=== PATIENT | male | born 1980 | race Caucasian/White ===

== ENCOUNTER 2019-02-11 09:56 | Inpatient (IN) | payer OTHER, SELFPAY ==
[2019-02-11] VITALS (14 sets, daily range): BP systolic 122–152; BP diastolic 71–91; PULSE 80–101; RESP 16–18; TEMP 36.4–37.4; O2SAT 99–100; BMI 29.0
--- NOTE | 2019-02-11 10:09 | ED_ITS ---
HPI - GI Bleed General Chief complaint: GI Bleed Stated complaint: sent over by his doctor Time Seen by Provider: 02/11/19 10:09 Source: patient Mode of arrival: ambulatory Limitations: no limitations History of Present Illness HPI Narrative: Otherwise healthy 38-year-old male sent over by his primary doctor for concerns of anemia. Patient states that 4 days ago he started to not feel very well. Had generalized weakness. Dyspnea on exertion. States that last week he did have 1 episode of bright red blood per rectum and has had several episodes of black tarry stools. He does drink on a daily basis. Is anamaria es nonsteroidal anti-inflammatories on a daily basis for generalized body aches. He states that he went to his primary doctor yesterday because of all of his symptoms. He thought that the bright red blood was secondary to his hemorrhoids. No abdominal pain he had a CBC drawn yesterday and the results were obtained today and his primary doctor informed him he needed to come to the emergency department. Related Data Home Medications Medication Instructions Recorded Confirmed alprazolam 0.5 mg PO TID PRN 02/11/19 02/11/19 lisinopril 10 mg PO DAILY 02/11/19 02/11/19 naproxen 1 - 2 tab PO 1-2XD PRN 02/11/19 02/11/19 omeprazole 20 mg PO DAILY 02/11/19 02/11/19 ondansetron 4 mg TRANSLINGUAL TID PRN 02/11/19 02/11/19 Allergies Allergy/AdvReac Type Severity Reaction Status Date / Time No Known Drug Allergies Allergy Verified 02/11/19 10:03 Review of Systems Constitutional Reports fatigue, Denies headache(s), Reports lethargy and Reports malaise ENT Ears, Nose, Mouth, and Throat: Denies dysphagia, Denies vertigo, Denies dizziness and Denies headache(s) Cardiovascular Denies chest pain and Reports dyspnea on exertion Respiratory Reports dyspnea on exertion Gastrointestinal Gastrointestinal: Denies abdominal pain, Denies coffee ground emesis, Denies dysphagia, Denies diarrhea and Denies vomiting Comments: Bright red blood per rectum and black tarry stools Genitourinary Denies hematuria, Denies dysuria and Denies urinary incontinence Musculoskeletal Denies myalgias and Denies arthralgias Integumentary/Breasts Denies rash Neurologic Denies vertigo, Denies dizziness and Denies headache(s) Endocrine Reports fatigue Hematologic/Lymphatic Denies easy bleeding and Denies easy bruising PFSH Medical History Healthy adult (Acute) Social History Smoking Status: Former smoker Social History Smoking Status: Former smoker Exam Initial Vital Signs Initial Vital Signs: Vital Signs Temperature 98.2 F 02/11/19 09:59 Pulse Rate 101 H 02/11/19 09:59 Respiratory Rate 16 02/11/19 09:59 Blood Pressure 152/91 H 02/11/19 09:59 Pulse Oximetry 100 02/11/19 09:59 Const General: cooperative, comfortable, well developed, well groomed and No acute distress Orientation: alert, awake and oriented x3 HENMT Head: normocephalic and atraumatic Ears: external ears normal and TM's normal bilaterally Nose: external nose normal and No nasal discharge Face and sinus: sinuses nontender, face symmetric, no sinus tenderness and No dry mucous membranes Mouth: oral mucosae normal and moist mucous membranes Teeth and gingiva: dentition normal Throat: tonsils normal and uvula midline Resp Effort & Inspection: normal respiratory effort Auscultation: clear to auscultation bilaterally Cardio Rate: tachycardic Rhythm: regular rhythm Pulses: radial pulses present GI Inspection: non-distended Palpation: soft and No firm Other: Non thrombosed external hemorrhoids on rectal exam Hemoccult positive Skin Lesions: no lesions Rashes: no rashes Other: Pale skin Neuro General: alert, awake and oriented x3 Extrem General: normal to inspection and capillary refill normal Psych Appearance: grossly normal and well kempt Scores GCS [place] coma scale eye opening: Spontaneous [place] coma scale verbal response: Orientated Lul coma scale motor response: Obey commands Lul coma scale total score: 15 Course Orders Ordered: ED Orders 02/11/19 10:08 EKG-12 Lead Stat 02/11/19 10:45 Complete Blood Count AUTO DIFF Stat Comprehensive Metabolic Panel Stat Lipase Stat Packed Cells Stat Partial Thromboplastin Time Stat Prothrombin Time INR Stat Type and Screen Stat Pantoprazole Sodium 80 mg/ (Sodium Chloride) 100 mls @ 10 mls/hr IV CONT LANCE Last Admin: 02/11/19 11:42 Dose: 8 mg/hr, 10 mls/hr Discontinued Medications Pantoprazole Sodium (Protonix) 80 mg IV NOW ONE Stop: 02/11/19 10:31 Last Admin: 02/11/19 11:42 Dose: 80 mg Vital Signs - 8 hr 02/11/19 09:59 02/11/19 11:30 02/11/19 12:00 Temperature 98.2 F Pulse Rate 101 H 93 H 96 H Respiratory Rate 16 16 17 Blood Pressure 152/91 H Blood Pressure [Left Arm] 145/71 H 134/84 Pulse Oximetry 100 100 100 02/11/19 12:29 Temperature 99.4 F Pulse Rate 90 Respiratory Rate 16 Blood Pressure 129/83 Blood Pressure [Left Arm] Pulse Oximetry MDM - GI Bleed Lab Data Attestation: I reviewed the patient's lab results. Result diagrams: 02/11/19 10:45 02/11/19 10:45 Lab Results 02/11/19 02/11/19 02/11/19 Range/Units 10:45 10:45 10:45 WBC 6.0 (4.5-11.0) X10^3/uL RBC 2.08 L (4.5-5.9) X10^6/uL Hgb 6.5 L* (13.5-17.5) g/dL Hct 18.6 L* (41-53) % MCV 89.1 (80-100) fL MCH 31.4 (26-34) PG MCHC 35.2 (30-36) % RDW 13.9 (11.6-14.8) % Plt Count 276 (150-400) X10^3/uL Neut % (Auto) 61.1 (50-75) % Lymph % (Auto) 27.0 (25-40) % [place] % (Auto) 7.5 (3-14) % Eos % (Auto) 3.6 (2-4) % Baso % (Auto) 0.8 (0-2) % Neut # (Auto) 3700 (7844-4887) /uL Lymph # (Auto) 1600 (5873-6991) /uL [place] # (Auto) 500 (0-900) /uL Eos # (Auto) 200 (0-450) /uL Baso # (Auto) 0 (0-100) /uL PT 12.2 (10.1-12.7) SECONDS INR 1.1 (0.9-1.3) APTT 29 (26.4-36.2) SECONDS Sodium 139 (137-145) mmol/L Potassium 3.7 (3.4-5.1) mmol/L Chloride 104 (98-107) mmol/L Carbon Dioxide 26 (22-32) mmol/L BUN 16 (9-20) mg/dL Creatinine 0.80 (0.66-1.25) mg/dL Estimated GFR > 60.0 (>60) mL/min BUN/Creatinine Ratio 20.0 (6-22) Glucose 93 (70-100) mg/dL Calcium 8.7 (8.4-10.2) mg/dL Total Bilirubin 0.2 (0.2-1.3) mg/dL AST 21 (17-59) IU/L ALT 30 (21-72) IU/L Alkaline Phosphatase 42 (38-126) U/L Total Protein 6.2 L (6.3-8.2) g/dL Albumin 3.9 (3.5-5.0) g/dL Globulin 2.3 (1.7-4.1) g/dL Albumin/Globulin Ratio 1.7 (1.0-2.8) Lipase 145 (23-300) U/L Blood Type Antibody Screen Crossmatch 02/11/19 Range/Units 10:45 WBC (4.5-11.0) X10^3/uL RBC (4.5-5.9) X10^6/uL Hgb (13.5-17.5) g/dL Hct (41-53) % MCV (80-100) fL MCH (26-34) PG MCHC (30-36) % RDW (11.6-14.8) % Plt Count (150-400) X10^3/uL Neut % (Auto) (50-75) % Lymph % (Auto) (25-40) % [place] % (Auto) (3-14) % Eos % (Auto) (2-4) % Baso % (Auto) (0-2) % Neut # (Auto) (0487-5099) /uL Lymph # (Auto) (0255-5509) /uL [place] # (Auto) (0-900) /uL Eos # (Auto) (0-450) /uL Baso # (Auto) (0-100) /uL PT (10.1-12.7) SECONDS INR (0.9-1.3) APTT (26.4-36.2) SECONDS Sodium (137-145) mmol/L Potassium (3.4-5.1) mmol/L Chloride (98-107) mmol/L Carbon Dioxide (22-32) mmol/L BUN (9-20) mg/dL Creatinine (0.66-1.25) mg/dL Estimated GFR (>60) mL/min BUN/Creatinine Ratio (6-22) Glucose (70-100) mg/dL Calcium (8.4-10.2) mg/dL Total Bilirubin (0.2-1.3) mg/dL AST (17-59) IU/L ALT (21-72) IU/L Alkaline Phosphatase (38-126) U/L Total Protein (6.3-8.2) g/dL Albumin (3.5-5.0) g/dL Globulin (1.7-4.1) g/dL Albumin/Globulin Ratio (1.0-2.8) Lipase (23-300) U/L Blood Type O Positive Antibody Screen Negative Crossmatch See Detail ECG Data Attestation: I personally reviewed and interpreted this ECG as follows: Prior ECG tracings: not available for review Interpretation: Sinus tachycardia Ventricular rate of 102 Normal axis Normal QRS Normal QTC Nonspecific ST T wave changes MDM Narrative Medical decision making narrative: Patient is Hemoccult positive and anemic. He was consented for blood transfusion. 2 units of packed red blood cells were ordered. High suspicion of upper GI bleed. He was given Protonix. Discussed the case with Dr. Luna with General surgery who states that he would see the patient as an inpatient but should be admitted under Medicine. Discussed the case with Dr. Lopez who will admit the patient for further evaluation and treatment. Discussed the admission with the patient and his both expressed understanding and agreement plan. Discharge Plan Departure Patient Disposition: Admitted As Inpatient Clinical Impression: Upper gastrointestinal hemorrhage Anemia Qualifiers: Anemia type: unspecified type Qualified Code(s): D64.9 - Anemia, unspecified
[2019-02-11 11:05] LABS: INR 1.1 (0.9-1.3); Prothrombin Time 12.2 SECONDS (10.1-12.7)
[2019-02-11 11:07] LABS: Add Manual Diff / Slide Review NO; Basophils Absolute Auto 0 /uL (0-100); Basophils Percent Auto 0.8 % (0-2); Eosinophils Absolute Auto 200 /uL (0-450); Eosinophils Percent Auto 3.6 % (2-4); Lymphocytes Absolute Auto 1600 /uL (1100-4500); Mean Corpuscular HGB Conc 35.2 % (30-36); Mean Corpuscular Hemoglobin 31.4 PG (26-34); Mean Corpuscular Volume 89.1 fL (80-100); Monocytes Absolute Auto 500 /uL (0-900); Monocytes Percent Auto 7.5 % (3-14); Neutrophils Absolute Auto 3700 /uL (1500-7000); Neutrophils Percent Auto 61.1 % (50-75); Platelet Count 276 X10^3/uL (150-400); Red Blood Cell Count 2.08 X10^6/uL (4.5-5.9); Red Cell Distribution Width 13.9 % (11.6-14.8)
[2019-02-11 11:08] LABS: PTT Partial Thromboplastin Tim 29 SECONDS (26.4-36.2)
[2019-02-11 11:09] LABS: Hematocrit 18.6 % (41-53); Hemoglobin 6.5 g/dL (13.5-17.5)
--- NOTE | 2019-02-11 11:31 | PC.NURSE ---
Addendum entered by Bell Santacruz R.N. 02/11/19 11:34: seen at [facility], for nausea and vomiting, shortness of breath, dyspneic on exertion, at times with dizziness . reports stool with bright red blood and some dark blood. Original Note: 4 days of lower gi bleed. also hx of hemorrhoids, drinker and takes nsaids.
[2019-02-11] MEDS: PANTOPRAZOLE 80 MG in SODIUM CHLORIDE 0.9% 100 ML 10 ML IV ×2 (11:42→22:18)
[2019-02-11] MEDS: PANTOPRAZOLE 40 MG VIAL 80 MG IV (11:42)
[2019-02-11 12:16] LABS: Alanine Aminotransferase 30 IU/L (21-72); Albumin 3.9 g/dL (3.5-5.0); Albumin Globulin Ratio 1.7 (1.0-2.8); Alkaline Phosphatase 42 U/L (38-126); Aspartate Aminotransferase 21 IU/L (17-59); Bilirubin Total 0.2 mg/dL (0.2-1.3); Blood Urea Nitrogen 16 mg/dL (9-20); Calcium 8.7 mg/dL (8.4-10.2); Carbon Dioxide 26 mmol/L (22-32); Chloride 104 mmol/L (98-107); Estimated Glomerular Filt Rate > 60.0 mL/min (>60); Globulin 2.3 g/dL (1.7-4.1); Glucose 93 mg/dL (70-100); HEMOLYSIS < 15 (0-50); Lipase 145 U/L (23-300); Potassium 3.7 mmol/L (3.4-5.1); Sodium 139 mmol/L (137-145); Total Protein 6.2 g/dL (6.3-8.2)
--- NOTE | 2019-02-11 13:39 | PC.NURSE ---
Pt arrived from ED via stretcher. A,A,Ox4. PRBCs infusing and Protonix drip. Pt denies pain, was escorted to [facility] to void, wifeat bedside.
--- NOTE | 2019-02-11 14:55 | PC.NURSE ---
1450 #2 Unit of PRBCs hung. Pt denies any s/s complications.
--- NOTE | 2019-02-11 15:07 | PM.CN ---
History of Present Illness Date Patient Seen: 02/11/19 Time Patient Seen: 15:07 Chief complaint: sent over by his doctor Narrative: 38-year-old white male patient who drinks alcohol on a daily basis and also takes copious amounts of nonsteroidal anti-inflammatory drugs such as Motrin and Aleve. Was feeling weak dizzy excessively fatigued over the last few days and sought the advice of his physician who checked his hemoglobin and it was noted to be 7.5 yesterday. Patient was referred to the emergency room here today and his hemoglobin is 6.5. Does have orthostatic hypotension. He is being admitted for transfusion and upper endoscopy patient admits to having some bloody stools but over the last week or 10 days has had black stools. Patient denies significant abdominal pain. [facility] Medical History Healthy adult (Acute) Social History household members: spouse Smoking Status: Former smoker Social History household members: spouse Smoking Status: Former smoker Meds Home Medications Medication Instructions Recorded Confirmed Type alprazolam 0.5 mg PO TID PRN 02/11/19 02/11/19 History lisinopril 10 mg PO DAILY 02/11/19 02/11/19 History naproxen 1 - 2 tab PO 1-2XD PRN 02/11/19 02/11/19 History omeprazole 20 mg PO DAILY 02/11/19 02/11/19 History ondansetron 4 mg TRANSLINGUAL TID PRN 02/11/19 02/11/19 History Allergies Allergy/AdvReac Type Severity Reaction Status Date / Time No Known Drug Allergies Allergy Verified 02/11/19 10:03 Review of Systems Review of Systems All systems reviewed & are unremarkable except as noted in HPI and below Exam Vital Signs (past 8 hours): - 02/11/19 09:59 02/11/19 11:30 02/11/19 12:00 Temperature 98.2 F Pulse Rate 101 H 93 H 96 H Respiratory Rate 16 16 17 Blood Pressure 152/91 H Blood Pressure [Left Arm] 145/71 H 134/84 Pulse Oximetry 100 100 100 02/11/19 12:29 02/11/19 12:30 02/11/19 12:46 Temperature 99.4 F 99.4 F Pulse Rate 90 90 99 H Respiratory Rate 16 16 16 Blood Pressure 129/83 127/88 Blood Pressure [Left Arm] 134/84 Pulse Oximetry 100 02/11/19 13:00 02/11/19 13:30 02/11/19 14:31 Temperature 98.3 F 98.2 F Pulse Rate 93 H 84 88 Respiratory Rate 16 16 16 Blood Pressure 145/78 H 128/79 Blood Pressure [Left Arm] 130/90 Pulse Oximetry 100 100 02/11/19 14:48 Temperature 98.2 F Pulse Rate 92 H Respiratory Rate 16 Blood Pressure 123/78 Blood Pressure [Left Arm] Pulse Oximetry Oxygen Delivery Method Room Air Oxygen Flow Rate 0 Narrative Exam Narrative: Blood pressure 100/60 heart rate in the low 100s Lungs are clear Heart regular rhythm no murmur Abdomen is soft with no significant tenderness. No masses. Rectal exam done in the emergency room shows melena guaiac positive. Objective Labs Result Diagrams: 02/11/19 10:45 02/11/19 10:45 Labs: Laboratory Results - last 24 hr 02/11/19 02/11/19 02/11/19 10:45 10:45 10:45 WBC 6.0 RBC 2.08 L Hgb 6.5 L* Hct 18.6 L* MCV 89.1 MCH 31.4 MCHC 35.2 RDW 13.9 Plt Count 276 Neut % (Auto) 61.1 Lymph % (Auto) 27.0 [place] % (Auto) 7.5 Eos % (Auto) 3.6 Baso % (Auto) 0.8 Neut # (Auto) 3700 Lymph # (Auto) 1600 [place] # (Auto) 500 Eos # (Auto) 200 Baso # (Auto) 0 PT 12.2 INR 1.1 APTT 29 Sodium 139 Potassium 3.7 Chloride 104 Carbon Dioxide 26 BUN 16 Creatinine 0.80 Estimated GFR > 60.0 BUN/Creatinine Ratio 20.0 Glucose 93 Calcium 8.7 Total Bilirubin 0.2 AST 21 ALT 30 Alkaline Phosphatase 42 Total Protein 6.2 L Albumin 3.9 Globulin 2.3 Albumin/Globulin Ratio 1.7 Lipase 145 Blood Type Antibody Screen Crossmatch 02/11/19 10:45 WBC RBC Hgb Hct MCV MCH MCHC RDW Plt Count Neut % (Auto) Lymph % (Auto) [place] % (Auto) Eos % (Auto) Baso % (Auto) Neut # (Auto) Lymph # (Auto) [place] # (Auto) Eos # (Auto) Baso # (Auto) PT INR APTT Sodium Potassium Chloride Carbon Dioxide BUN Creatinine Estimated GFR BUN/Creatinine Ratio Glucose Calcium Total Bilirubin AST ALT Alkaline Phosphatase Total Protein Albumin Globulin Albumin/Globulin Ratio Lipase Blood Type O Positive Antibody Screen Negative Crossmatch See Detail Assessment & Plan Assessment & Plan narrative: Patient on nonsteroidal anti-inflammatories and drinks alcohol on a daily basis. I suspect that he has a source of bleeding in his upper GI tract such as severe gastritis and or a duodenal ulcer. Patient is somewhat unstable today. He is not having hematemesis and does not have abdominal pain. plan is transfusion today and upper endoscopy tomorrow I have explained this to the patient and his they understand and agree.
--- NOTE | 2019-02-11 15:11 | P.CONS_ITS ---
History of Present Illness Date Patient Seen: 02/11/19 Time Patient Seen: 15:07 Chief complaint: sent over by his doctor Narrative: 38-year-old white male patient who drinks alcohol on a daily basis and also takes copious amounts of nonsteroidal anti-inflammatory drugs such as Motrin and Aleve. Was feeling weak dizzy excessively fatigued over the last few days and sought the advice of his physician who checked his hemoglobin and it was noted to be 7.5 yesterday. Patient was referred to the emergency room here today and his hemoglobin is 6.5. Does have orthostatic hypotension. He is being admitted for transfusion and upper endoscopy patient admits to having some bloody stools but over the last week or 10 days has had black stools. Patient denies significant abdominal pain. [facility] Medical History Healthy adult (Acute) Social History household members: spouse Smoking Status: Former smoker Social History household members: spouse Smoking Status: Former smoker Meds Home Medications Medication Instructions Recorded Confirmed Type alprazolam 0.5 mg PO TID PRN 02/11/19 02/11/19 History lisinopril 10 mg PO DAILY 02/11/19 02/11/19 History naproxen 1 - 2 tab PO 1-2XD PRN 02/11/19 02/11/19 History omeprazole 20 mg PO DAILY 02/11/19 02/11/19 History ondansetron 4 mg TRANSLINGUAL TID PRN 02/11/19 02/11/19 History Allergies Allergy/AdvReac Type Severity Reaction Status Date / Time No Known Drug Allergies Allergy Verified 02/11/19 10:03 Review of Systems Review of Systems All systems reviewed & are unremarkable except as noted in HPI and below Exam Vital Signs (past 8 hours): - 02/11/19 09:59 02/11/19 11:30 02/11/19 12:00 Temperature 98.2 F Pulse Rate 101 H 93 H 96 H Respiratory Rate 16 16 17 Blood Pressure 152/91 H Blood Pressure [Left Arm] 145/71 H 134/84 Pulse Oximetry 100 100 100 02/11/19 12:29 02/11/19 12:30 02/11/19 12:46 Temperature 99.4 F 99.4 F Pulse Rate 90 90 99 H Respiratory Rate 16 16 16 Blood Pressure 129/83 127/88 Blood Pressure [Left Arm] 134/84 Pulse Oximetry 100 02/11/19 13:00 02/11/19 13:30 02/11/19 14:31 Temperature 98.3 F 98.2 F Pulse Rate 93 H 84 88 Respiratory Rate 16 16 16 Blood Pressure 145/78 H 128/79 Blood Pressure [Left Arm] 130/90 Pulse Oximetry 100 100 02/11/19 14:48 Temperature 98.2 F Pulse Rate 92 H Respiratory Rate 16 Blood Pressure 123/78 Blood Pressure [Left Arm] Pulse Oximetry Oxygen Delivery Method Room Air Oxygen Flow Rate 0 Narrative Exam Narrative: Blood pressure 100/60 heart rate in the low 100s Lungs are clear Heart regular rhythm no murmur Abdomen is soft with no significant tenderness. No masses. Rectal exam done in the emergency room shows melena guaiac positive. Objective Labs Result Diagrams: 02/11/19 10:45 02/11/19 10:45 Labs: Laboratory Results - last 24 hr 02/11/19 02/11/19 02/11/19 10:45 10:45 10:45 WBC 6.0 RBC 2.08 L Hgb 6.5 L* Hct 18.6 L* MCV 89.1 MCH 31.4 MCHC 35.2 RDW 13.9 Plt Count 276 Neut % (Auto) 61.1 Lymph % (Auto) 27.0 [place] % (Auto) 7.5 Eos % (Auto) 3.6 Baso % (Auto) 0.8 Neut # (Auto) 3700 Lymph # (Auto) 1600 [place] # (Auto) 500 Eos # (Auto) 200 Baso # (Auto) 0 PT 12.2 INR 1.1 APTT 29 Sodium 139 Potassium 3.7 Chloride 104 Carbon Dioxide 26 BUN 16 Creatinine 0.80 Estimated GFR > 60.0 BUN/Creatinine Ratio 20.0 Glucose 93 Calcium 8.7 Total Bilirubin 0.2 AST 21 ALT 30 Alkaline Phosphatase 42 Total Protein 6.2 L Albumin 3.9 Globulin 2.3 Albumin/Globulin Ratio 1.7 Lipase 145 Blood Type Antibody Screen Crossmatch 02/11/19 10:45 WBC RBC Hgb Hct MCV MCH MCHC RDW Plt Count Neut % (Auto) Lymph % (Auto) [place] % (Auto) Eos % (Auto) Baso % (Auto) Neut # (Auto) Lymph # (Auto) [place] # (Auto) Eos # (Auto) Baso # (Auto) PT INR APTT Sodium Potassium Chloride Carbon Dioxide BUN Creatinine Estimated GFR BUN/Creatinine Ratio Glucose Calcium Total Bilirubin AST ALT Alkaline Phosphatase Total Protein Albumin Globulin Albumin/Globulin Ratio Lipase Blood Type O Positive Antibody Screen Negative Crossmatch See Detail Assessment & Plan Assessment & Plan narrative: Patient on nonsteroidal anti-inflammatories and drinks alcohol on a daily basis. I suspect that he has a source of bleeding in his upper GI tract such as severe gastritis and or a duodenal ulcer. Patient is somewhat unstable today. He is not having hematemesis and does not have abdominal pain. plan is transfusion today and upper endoscopy tomorrow I have explained this to the patient and his they understand and agree.
--- NOTE | 2019-02-11 15:37 | PM.HP.1 ---
History of Present Illness Date Patient Seen: 02/11/19 Chief complaint: sent over by his doctor Narrative: The patient is a 38-year-old male previously healthy who was in his usual state of health until about 6 days ago when he reports developing shortness of breath intermittent dizziness and some rectal bleeding. Patient has known hemorrhoids and thought the rectal bright red blood per rectum was secondary to the hemorrhoids. Subsequently developed some dark stools which may have been melanotic. Patient was ill at work with dizziness and some diarrhea. He thought he had gastroenteritis. The patient has a history of migraine headaches which has since resolved years ago. However he does report having chronic daily headache. He typically takes 6-800 mg ibuprofen daily. When he does not take ibuprofen he takes twice daily dosing of Naprosyn. This is often taken on an empty stomach. Patient reports he has been doing this at least for 1 year. In addition he reports to drinking alcohol of about 4 shots per day. It sounds that he like he may have previously been a heavier drinker. The patient went to his primary care physician as he was. Feeling poorly. He complained of fatigue lightheadedness shortness of breath and palpitations. He has a history of panic attack and thought he was having recurrent episodes of panic. He was given a dose of Xanax for this. In addition CBC was obtained in the office. The results of the CBC came back today with a hemoglobin of 7 and a hematocrit of 24. The patient was referred to the emergency department for further evaluation. He was evaluated in the emergency department. He was found to be pale, heart rate in the 100s. He had a hemoglobin of 6.5 and hematocrit of 18.6. He did have guaiac stool which was positive in the ED. Patient is admitted to the hospital at this time for acute blood loss anemia secondary to an upper GI bleed. Patient History Medical History (Updated 02/11/19 @ 15:53 by Natalie Lopez MD) Back pain (Acute) Chronic daily headache (Acute) Healthy adult (Acute) Hypertension (Acute) Lower extremity pain (Acute) Migraine headache (Acute) [place] teeth extracted (Acute) Family History (Updated 02/11/19 @ 15:44 by Natalie Lopez MD) Father Myocardial infarction Mother Obesity Obstructive sleep apnea Social History household members: spouse Smoking Status: Former smoker Family & Social History Family History (Updated 02/11/19 @ 15:44 by Natalie Lopez MD) Father Myocardial infarction Mother Obesity Obstructive sleep apnea Social History: household members spouse Safety & Behavioral: Feels Safe in Current Yes Environment Been Physically Hurt or No Threatened By a Person Suicidal Ideation Description None Tobacco & Substance use: Smoking Status Former smoker alcohol intake frequency 0-2 drinks per day Substance Use Type does not use Meds Home Medications Medication Instructions Recorded Confirmed Type alprazolam 0.5 mg PO TID PRN 02/11/19 02/11/19 History lisinopril 10 mg PO DAILY 02/11/19 02/11/19 History naproxen 1 - 2 tab PO 1-2XD PRN 02/11/19 02/11/19 History omeprazole 20 mg PO DAILY 02/11/19 02/11/19 History ondansetron 4 mg TRANSLINGUAL TID PRN 02/11/19 02/11/19 History Allergies Allergy/AdvReac Type Severity Reaction Status Date / Time No Known Drug Allergies Allergy Verified 02/11/19 10:03 Review of Systems Review of Systems All systems reviewed & are unremarkable except as noted in HPI and below Exam Vital Signs (past 8 hours): - 02/11/19 09:59 02/11/19 11:30 02/11/19 12:00 Temperature 98.2 F Pulse Rate 101 H 93 H 96 H Respiratory Rate 16 16 17 Blood Pressure 152/91 H Blood Pressure [Left Arm] 145/71 H 134/84 Pulse Oximetry 100 100 100 02/11/19 12:29 02/11/19 12:30 02/11/19 12:46 Temperature 99.4 F 99.4 F Pulse Rate 90 90 99 H Respiratory Rate 16 16 16 Blood Pressure 129/83 127/88 Blood Pressure [Left Arm] 134/84 Pulse Oximetry 100 02/11/19 13:00 02/11/19 13:30 02/11/19 14:31 Temperature 98.3 F 98.2 F Pulse Rate 93 H 84 88 Respiratory Rate 16 16 16 Blood Pressure 145/78 H 128/79 Blood Pressure [Left Arm] 130/90 Pulse Oximetry 100 100 02/11/19 14:48 Temperature 98.2 F Pulse Rate 92 H Respiratory Rate 16 Blood Pressure 123/78 Blood Pressure [Left Arm] Pulse Oximetry Oxygen Delivery Method Room Air Oxygen Flow Rate 0 Narrative Exam Narrative: Pleasant ill-appearing gentleman somewhat pale HEENT: Normocephalic atraumatic, extraocular muscles are intact, oropharynx is clear, neck is supple, Lungs: Clear to auscultation Cardiac exam: Regular rate and rhythm normal S1-S2 with a 2/6 systolic ejection murmur Abdomen: Soft nontender nondistended, no hepatosplenomegaly, no rebound tenderness no board-like rigidity. Extremities: No edema Neuro exam: Cranial nerves 2-12 are intact, strength is symmetric and equal, sensation is grossly intact speech is fluent, patient has normal cognition. Psychiatric: No hallucinations, no delusions, no tics, Objective Labs Result Diagrams: 02/11/19 10:45 02/11/19 10:45 Labs: Laboratory Results - last 24 hr 02/11/19 02/11/19 02/11/19 10:45 10:45 10:45 WBC 6.0 RBC 2.08 L Hgb 6.5 L* Hct 18.6 L* MCV 89.1 MCH 31.4 MCHC 35.2 RDW 13.9 Plt Count 276 Neut % (Auto) 61.1 Lymph % (Auto) 27.0 [place] % (Auto) 7.5 Eos % (Auto) 3.6 Baso % (Auto) 0.8 Neut # (Auto) 3700 Lymph # (Auto) 1600 [place] # (Auto) 500 Eos # (Auto) 200 Baso # (Auto) 0 PT 12.2 INR 1.1 APTT 29 Sodium 139 Potassium 3.7 Chloride 104 Carbon Dioxide 26 BUN 16 Creatinine 0.80 Estimated GFR > 60.0 BUN/Creatinine Ratio 20.0 Glucose 93 Calcium 8.7 Total Bilirubin 0.2 AST 21 ALT 30 Alkaline Phosphatase 42 Total Protein 6.2 L Albumin 3.9 Globulin 2.3 Albumin/Globulin Ratio 1.7 Lipase 145 Blood Type Antibody Screen Crossmatch 02/11/19 10:45 WBC RBC Hgb Hct MCV MCH MCHC RDW Plt Count Neut % (Auto) Lymph % (Auto) [place] % (Auto) Eos % (Auto) Baso % (Auto) Neut # (Auto) Lymph # (Auto) [place] # (Auto) Eos # (Auto) Baso # (Auto) PT INR APTT Sodium Potassium Chloride Carbon Dioxide BUN Creatinine Estimated GFR BUN/Creatinine Ratio Glucose Calcium Total Bilirubin AST ALT Alkaline Phosphatase Total Protein Albumin Globulin Albumin/Globulin Ratio Lipase Blood Type O Positive Antibody Screen Negative Crossmatch See Detail Assessment & Plan (1) Hypertension: Current visit: Yes Status: Acute (2) Anemia: Problem details: Acute blood loss anemia, secondary to upper GI bleed. Patient is currently receiving a 2nd of 2 units of packed RBCs. Will obtain serial hematocrits. Goal is to transfuse him to a hemoglobin of at least 8. Anticipate EGD tomorrow as above. Qualifiers: Anemia type: unspecified type Bone marrow failure anemia type: Chronic kidney disease stage: Folate deficiency anemia type: Hemolytic anemia type: Iron deficiency anemia type: Other causes of anemia: Vitamin B12 deficiency anemia type: Qualified Code(s): D64.9 - Anemia, unspecified Current visit: Yes Status: Acute (3) Upper gastrointestinal hemorrhage: Problem details: Upper GI bleeding, present on admission. Suspect related to nonsteroidal use. Patient is Npo after midnight. He is on an IV proton pump inhibitor. Anticipate upper endoscopy tomorrow. Current visit: Yes Status: Acute (4) Chronic daily headache: Problem details: Chronic daily headache. Present on admission. Patient will be treated with IV morphine at this time that recommend follow up with a headache specialist at discharge. Current visit: Yes Status: Acute (5) History of alcohol use: Problem details: Patient will be placed on the CIWA protocol. No history of DTs but will follow closely. Current visit: Yes Status: Acute Quality VTE Deep Vein Thrombosis/Pulmonary Embolism Present on Admission: No
[2019-02-11] MEDS: MORPHINE 2 MG/ML INJ 1 MG IV ×2 (16:10→21:25)
[2019-02-11] MEDS: SODIUM CHLORIDE 0.9% 1,000 ML 84 ML IV (16:12)
[2019-02-11 21:09] LABS: Add Manual Diff / Slide Review NO; Basophils Absolute Auto 100 /uL (0-100); Eosinophils Absolute Auto 300 /uL (0-450); Eosinophils Percent Auto 4.6 % (2-4); Hematocrit 21.9 % (41-53); Hemoglobin 7.7 g/dL (13.5-17.5); Lymphocytes Absolute Auto 2000 /uL (1100-4500); Lymphocytes Percent Auto 30.6 % (25-40); Mean Corpuscular HGB Conc 35.2 % (30-36); Mean Corpuscular Hemoglobin 31.1 PG (26-34); Mean Corpuscular Volume 88.3 fL (80-100); Monocytes Absolute Auto 500 /uL (0-900); Neutrophils Absolute Auto 3700 /uL (1500-7000); Neutrophils Percent Auto 56.8 % (50-75); Platelet Count 248 X10^3/uL (150-400); Red Blood Cell Count 2.48 X10^6/uL (4.5-5.9); Red Cell Distribution Width 14.2 % (11.6-14.8); White Blood Cell Count 6.5 X10^3/uL (4.5-11.0)
[2019-02-12] VITALS (18 sets, daily range): BP systolic 116–145; BP diastolic 70–91; PULSE 75–98; RESP 10–18; TEMP 36.4–37.3; O2SAT 95–100; BMI 29.0
--- NOTE | 2019-02-12 | PATH_ITS ---
[facility] Accession Number: [id number] . 01 Material submitted: . gastrointestinal site - ANTRUM . 01 Clinical history: . A: BIOPSY FOR H. PYLORI (ANTRUM) . 02 Diagnosis: Antrum, Biopsy: Gastric antral mucosa with mild chronic inflammation. Negative for Helicobacter organisms by immunohistochemistry. Negative for intestinal metaplasia, dysplasia or malignancy. MRV/02/16/2019 . 02 Electronically signed: . Manuel Croft MD, PhD, Pathologist NPI- [id number] . 01 Gross description: . ANTRUM: Received in formalin is 1 fragment(s) of campos, soft tissue measuring 0.3 x 0.2 x 0.2 cm which is entirely submitted and submitted entirely in 1 cassette(s) /DMC /DMC . 02 Microscopic: . An immunohistochemical stain is performed to evaluate for Helicobacter organisms and is negative. A control stain shows appropriate reactivity. . * This test was developed and its performance characteristics determined by [facility]. It has not been cleared or approved by the U.S. Food and Drug Administration. The FDA has determined that such clearance or approval is not necessary. This test is used for clinical purposes. It should not be regarded as investigational or for research. . 02 Pathologist provided ICD-10: K29.70 . 02 CPT . 519194, [id number] Performed at: 01 [facility] [address] [facility], [place], [place] [id number] MD Carlos Enrique Saab MD Phone: [phone] Performed at: 02 [facility] [id number] [place], [place] [id number] MD Melissa Hall MD Phone: [phone]
[2019-02-12 05:48] LABS: Blood Urea Nitrogen 12 mg/dL (9-20); Calcium 8.1 mg/dL (8.4-10.2); Carbon Dioxide 28 mmol/L (22-32); Chloride 103 mmol/L (98-107); Estimated Glomerular Filt Rate > 60.0 mL/min (>60); Glucose 95 mg/dL (70-100); HEMOLYSIS < 15 (0-50); Potassium 3.8 mmol/L (3.4-5.1); Sodium 137 mmol/L (137-145)
--- NOTE | 2019-02-12 06:07 | PC.NURSE ---
Pt A and O x 4, VSS, no BMs noc shift. Pt denies pain N/V. He was able to sleep. He is NPO since 0000. +BTs.
[2019-02-12 06:15] LABS: Add Manual Diff / Slide Review NO; Basophils Absolute Auto 100 /uL (0-100); Basophils Percent Auto 0.9 % (0-2); Eosinophils Absolute Auto 300 /uL (0-450); Hemoglobin 7.6 g/dL (13.5-17.5); Lymphocytes Absolute Auto 1200 /uL (1100-4500); Lymphocytes Percent Auto 21.6 % (25-40); Mean Corpuscular HGB Conc 34.1 % (30-36); Mean Corpuscular Hemoglobin 30.3 PG (26-34); Monocytes Absolute Auto 400 /uL (0-900); Monocytes Percent Auto 7.8 % (3-14); Neutrophils Absolute Auto 3700 /uL (1500-7000); Neutrophils Percent Auto 63.7 % (50-75); Platelet Count 249 X10^3/uL (150-400); Red Blood Cell Count 2.52 X10^6/uL (4.5-5.9); Red Cell Distribution Width 14.2 % (11.6-14.8); White Blood Cell Count 5.8 X10^3/uL (4.5-11.0)
[2019-02-12 06:16] LABS: Hematocrit 22.4 % (41-53)
[2019-02-12] MEDS: MORPHINE 2 MG/ML INJ 1 MG IV ×2 (07:02→11:51)
[2019-02-12] MEDS: PANTOPRAZOLE 80 MG in SODIUM CHLORIDE 0.9% 100 ML 10 ML IV (08:31)
[2019-02-12] MEDS: SODIUM CHLORIDE 0.9% 1,000 ML 84 ML IV (08:31)
--- NOTE | 2019-02-12 13:07 | P.PN_ITS ---
Subjective Date Patient Seen: 02/12/19 Interval history: Patient reports feeling somewhat short of breath today. He notes his breathing improved after 2nd unit but since receiving the 3rd unit he has felt more short of breath. His is concerned that he still looks pale. She is concerned that he may be bleeding patient did have a large brown bowel movement today. He is awaiting upper endoscopy which is scheduled for 3:00 p.m. today. He does report persistent headache. 1 mg morphine seems to take the edge off. Exam Vital Signs (past 8 hours): - 02/12/19 08:20 02/12/19 08:57 02/12/19 09:10 Temperature 97.6 F 97.9 F 98.1 F Pulse Rate 75 75 87 Respiratory Rate 16 18 16 Blood Pressure 129/87 129/87 140/80 Pulse Oximetry 99 02/12/19 11:56 02/12/19 12:00 Temperature 98.4 F 98.4 F Pulse Rate 79 79 Respiratory Rate 16 16 Blood Pressure 134/78 135/78 Pulse Oximetry 100 Oxygen Delivery Method Room Air Oxygen Flow Rate 0 Narrative Exam Narrative: Pleasant male lying in bed Lungs: Decreased but clear to auscultation Cardiac exam: Regular rate rhythm normal S1 and S2 with a 2/6 systolic ejection murmur Abdomen: Soft nontender nondistended, no board-like rigidity, no hepatosplen omegaly Extremities: No edema Objective Labs Result Diagrams: 02/12/19 05:04 02/12/19 05:04 Labs: Laboratory Results - last 24 hr 02/11/19 02/11/19 02/12/19 10:45 21:00 05:04 WBC 6.5 5.8 RBC 2.48 L 2.52 L Hgb 7.7 L 7.6 L Hct 21.9 L 22.4 L MCV 88.3 89.0 MCH 31.1 30.3 MCHC 35.2 34.1 RDW 14.2 14.2 Plt Count 248 249 Neut % (Auto) 56.8 63.7 Lymph % (Auto) 30.6 21.6 L [place] % (Auto) 7.0 7.8 Eos % (Auto) 4.6 H 6.0 H Baso % (Auto) 1.0 0.9 Neut # (Auto) 3700 3700 Lymph # (Auto) 2000 1200 [place] # (Auto) 500 400 Eos # (Auto) 300 300 Baso # (Auto) 100 100 Sodium Potassium Chloride Carbon Dioxide BUN Creatinine Estimated GFR BUN/Creatinine Ratio Glucose Calcium Blood Type O Positive Antibody Screen Negative Crossmatch See Detail 02/12/19 05:04 WBC RBC Hgb Hct MCV MCH MCHC RDW Plt Count Neut % (Auto) Lymph % (Auto) [place] % (Auto) Eos % (Auto) Baso % (Auto) Neut # (Auto) Lymph # (Auto) [place] # (Auto) Eos # (Auto) Baso # (Auto) Sodium 137 Potassium 3.8 Chloride 103 Carbon Dioxide 28 BUN 12 Creatinine 0.80 Estimated GFR > 60.0 BUN/Creatinine Ratio 15.0 Glucose 95 Calcium 8.1 L Blood Type Antibody Screen Crossmatch Assessment & Plan (1) Upper gastrointestinal hemorrhage: Problem details: Upper GI bleeding, present on admission. Suspect related to nonsteroidal use. Patient is Npo after midnight. He is on an IV proton pump inhibitor. Anticipate upper endoscopy tomorrow. Patient received his 3rd unit of packed RBCs today. Patient reports some shortness of breath today. Will Hep-Lock his IV fluids and evaluate further following his endoscopy. Current visit: Yes Status: Acute (2) Anemia: Problem details: Acute blood loss anemia, secondary to upper GI bleed. Patient is currently receiving a 2nd of 2 units of packed RBCs. Will obtain serial hematocrits. Goal is to transfuse him to a hemoglobin of at least 8. Anticipate EGD tomorrow as above. Patient received 1/3 unit of packed RBCs. Hemoglobin and hematocrit is 7/22. Will Hep-Lock his IV fluids. Will recheck his CBC and transfuse for hemoglobin of less than 8 Qualifiers: Anemia type: unspecified type Bone marrow failure anemia type: Chronic kidney disease stage: Folate deficiency anemia type: Hemolytic anemia type: Iron deficiency anemia type: Other causes of anemia: Vitamin B12 deficiency anemia type: Qualified Code(s): D64.9 - Anemia, unspecified Current visit: Yes Status: Acute (3) Hypertension: Problem details: Will hold his Frank inhibitor at this time but resume once blood pressures improved Current visit: Yes Status: Acute (4) Chronic daily headache: Problem details: Chronic daily headache. Present on admission. Patient will be treated with IV morphine at this time that recommend follow up with a headache specialist at [facility]. Current visit: Yes Status: Acute (5) History of alcohol use: Problem details: Patient will be placed on the CIWA protocol. No history of DTs but will follow closely. Current visit: Yes Status: Acute Assessment & Plan narrative: Discharge planning pending the results of EGD findings today. Quality VTE Deep Vein Thrombosis/Pulmonary Embolism Present on Admission: No
[2019-02-12] MEDS: MIDAZOLAM 5 MG/5 ML VIAL IV (14:34)
[2019-02-12] MEDS: fentaNYL 250 MCG/5 ML INJ IV (14:34)
[2019-02-12] MEDS: TETRACAINE/BENZOCAINE/BUTAMBEN (CETACAINE) BOTTLE 1 SPRAY TOP (14:34)
--- NOTE | 2019-02-12 14:54 | PM.OP.1 ---
Operative Date/Time/Diagnoses Date of procedure: 02/12/19 Time of procedure: 14:55 Pre-op diagnosis: Upper GI bleed secondary to peptic ulcer disease Post-op diagnosis: same Procedure & Clinicians Procedure: Esophagogastroduodenoscopy and gastric antral biopsy for H pylori Same procedure as scheduled: Yes Indications: Patient was admitted with melena and severe anemia suspected of having a gastric and/or duodenal ulcer Click Yes if Unassisted: Yes Anesthesia Type: Sedation Operative Notes Findings: Patient has diffuse antral gastritis and several duodenal ulcers and duodenitis. There was no active bleeding at this time. Closure Type: not applicable Specimen(s): other Blood products transfused: none Procedure in detail: The patient was properly identified and surgical pause. Was given a total of 100 micro g of fentanyl and 6 mg of Versed for this procedure. the flexible fiberoptic gastroscope inserted transorally from the hypopharynx into the 2nd portion the duodenum . EG junction is at 40 cm from the incisors. Patient has moderate diffuse esophagitis. Proximal stomach is normal on retroflexed and the scope the EG junction there is unremarkable. The gastric antrum contains diffuse gastritis no definitive ulcer. There is no active bleeding in the stomach. pyloric channel is very spastic but I was able to pass the scope through the pylorus several times. There are several duodenal ulcers which are not bleeding. there is also diffuse duodenitis. There is no active bleeding encountered anywhere in the upper GI tract. The scope was withdrawn gently and the procedure was well tolerated numerous photographs of the above were taken the gastric antrum was biopsied for H pylori Complications: none Condition: stable Disposition: PACU
--- NOTE | 2019-02-12 14:56 | PC.NURSE ---
1330 Pt gone for scheduled EGD via w/c.
--- NOTE | 2019-02-12 15:22 | SUR.PHASEI ---
KILEY IN TO SPEAK WITH PT, PT TOLERATING PO ICE CHIPS, DENIES ANY PAIN
--- NOTE | 2019-02-12 20:22 | PC.NURSE ---
200-Patient tolerating clear diet; no nausea no emesis. vss. ambulating to bathroom independently, gait stable; off monitoring.
--- NOTE | 2019-02-12 22:33 | PC.NURSE ---
Addendum entered by Shawna Munoz R.N. 02/12/19 23:02: 1300-pt c/o of headache, no PRN meds available, discussed w/PLASTIC PROCESS TECHNICIAN; awaiting order for fioricet Original Note: 1530-Received report, bedside safety checks done. assumed care of patient. 2230-Patient tolerating clear liquids; denies nausea and no emesis; no signs or symptoms of bleeding. Patient ambulating to bathroom. denies pain. VSS. at bedside, questions answered.
[2019-02-13 00:14] VITALS: O2SAT 95
[2019-02-13 05:12] VITALS: BP 135/85; PULSE 78; RESP 18; TEMP 36.7; O2SAT 98
[2019-02-13 05:32] LABS: Add Manual Diff / Slide Review NO; Basophils Absolute Auto 100 /uL (0-100); Basophils Percent Auto 0.9 % (0-2); Eosinophils Absolute Auto 300 /uL (0-450); Eosinophils Percent Auto 6.1 % (2-4); Hemoglobin 8.6 g/dL (13.5-17.5); Lymphocytes Absolute Auto 1300 /uL (1100-4500); Lymphocytes Percent Auto 23.4 % (25-40); Mean Corpuscular HGB Conc 35.9 % (30-36); Mean Corpuscular Hemoglobin 31.5 PG (26-34); Mean Corpuscular Volume 87.7 fL (80-100); Monocytes Absolute Auto 500 /uL (0-900); Monocytes Percent Auto 8.1 % (3-14); Neutrophils Absolute Auto 3400 /uL (1500-7000); Neutrophils Percent Auto 61.5 % (50-75); Platelet Count 274 X10^3/uL (150-400); Red Blood Cell Count 2.74 X10^6/uL (4.5-5.9); Red Cell Distribution Width 13.8 % (11.6-14.8); White Blood Cell Count 5.6 X10^3/uL (4.5-11.0)
[2019-02-13 05:40] LABS: Hematocrit 24.1 % (41-53)
[2019-02-13] MEDS: ACETAMINOPHEN 325 MG TABLET 975 MG PO (05:42)
[2019-02-13 05:56] LABS: Blood Urea Nitrogen 8 mg/dL (9-20); Calcium 8.5 mg/dL (8.4-10.2); Carbon Dioxide 28 mmol/L (22-32); Chloride 105 mmol/L (98-107); Estimated Glomerular Filt Rate > 60.0 mL/min (>60); Glucose 95 mg/dL (70-100); HEMOLYSIS < 15 (0-50); Sodium 139 mmol/L (137-145)
[2019-02-13] MEDS: BUTALB/APAP/CAFFEINE 50/325/40 TABLET 1 EACH PO (07:52)
[2019-02-13 09:00] VITALS: BP 127/78; PULSE 73; RESP 16; TEMP 36.7; O2SAT 99
--- NOTE | 2019-02-13 10:06 | P.DS_ITS ---
History of Present Illness Chief complaint: sent over by his doctor Narrative: The patient is a 38-year-old male previously healthy who was in his usual state of health until about 6 days ago when he reports developing shortness of breath intermittent dizziness and some rectal bleeding. Patient has known hemorrhoids and thought the rectal bright red blood per rectum was secondary to the hemorrhoids. Subsequently developed some dark stools which may have been melanotic. Patient was ill at work with dizziness and some diarrhea. He thought he had gastroenteritis. The patient has a history of migraine headaches which has since resolved years ago. However he does report having chronic daily headache. He typically takes 6-800 mg ibuprofen daily. When he does not take ibuprofen he takes twice daily dosing of Naprosyn. This is often taken on an empty stomach. Patient reports he has been doing this at least for 1 year. In addition he reports to drinking alcohol of about 4 shots per day. It sounds that he like he may have previously been a heavier drinker. The patient went to his primary care physician as he was. Feeling poorly. He complained of fatigue lightheadedness shortness of breath and palpitations. He has a history of panic attack and thought he was having recurrent episodes of panic. He was given a dose of Xanax for this. In addition CBC was obtained in the office. The results of the CBC came back today with a hemoglobin of 7 and a hematocrit of 24. The patient was referred to the emergency department for further evaluation. He was evaluated in the emergency department. He was found to be pale, heart rate in the 100s. He had a hemoglobin of 6.5 and hematocrit of 18.6. He did have guaiac stool which was positive in the ED. Patient is admitted to the hospital at this time for acute blood loss anemia secondary to an upper GI bleed. Discharge Providers Date of admission: 02/11/19 13:15 Discharge Date: 02/24/19 Discharge provider: Natalie Lopez MD Summary Discharge Diagnosis: 1. Acute blood loss anemia, status post transfusion of 3 units of packed RBCs 2. Upper GI bleed secondary to gastritis, duodenitis, multiple duodenal ulcers. Likely secondary to chronic NSAID use 3. Chronic daily headache 4. Hypertension Hospital Course: Patient is a 38-year-old male who was admitted to the hospital for symptomatic anemia. He was found to have a hemoglobin of 6 and hematocrit of 18. The patient received 2 units of packed RBCs on upon admission. He was noted to be guaiac-positive in the emergency department and started on a proton pump inhibitor. Patient had an upper endoscopy which confirmed a source of ble eding. He was found to have gastritis, duodenitis, multiple duodenal ulcers. The patient had no active bleeding during the procedure. He received a total of 3 units of blood for his anemia. The patient had no further evidence of bleeding. His stool was normal color and there was no evidence of melena. The patient's symptoms improved and his diet was advanced. He was deemed appropriate for discharge home. Arrangements were made for him to be discharged home. Status at Discharge Cognitive/behavioral status at discharge: oriented Functional status at discharge: independent ambulation Overall status at discharge: patient is back to baseline Time Spent with Patient Less than 30 minutes Exam Vital Signs (past 8 hours): - 02/13/19 05:12 02/13/19 09:00 Temperature 98.0 F 98.0 F Pulse Rate 78 73 Respiratory Rate 18 16 Blood Pressure 135/85 127/78 Pulse Oximetry 98 99 Oxygen Delivery Method Room Air Oxygen Flow Rate 0 Narrative Exam Narrative: Pleasant male in no acute distress Lungs: Clear to auscultation Cardiac exam: Regular rate and rhythm normal S1-S2 with 2/6 systolic ejection murmur Abdomen: Soft nontender nondistended Extremities reveal no edema Objective Labs Result Diagrams: 02/13/19 05:03 02/13/19 05:03 Labs: Laboratory Results - last 24 hr 02/11/19 02/13/19 02/13/19 10:45 05:03 05:03 WBC 5.6 RBC 2.74 L Hgb 8.6 L Hct 24.1 L MCV 87.7 MCH 31.5 MCHC 35.9 RDW 13.8 Plt Count 274 Neut % (Auto) 61.5 Lymph % (Auto) 23.4 L [place] % (Auto) 8.1 Eos % (Auto) 6.1 H Baso % (Auto) 0.9 Neut # (Auto) 3400 Lymph # (Auto) 1300 [place] # (Auto) 500 Eos # (Auto) 300 Baso # (Auto) 100 Sodium 139 Potassium 4.0 Chloride 105 Carbon Dioxide 28 BUN 8 L Creatinine 0.80 Estimated GFR > 60.0 BUN/Creatinine Ratio 10.0 Glucose 95 Calcium 8.5 Crossmatch See Detail Discharge Plan Discharge Plan Patient Disposition: Home Discharge comment: Follow up with PCP in 1-2 weeks Discharge Med Rec/Prescriptions Prescriptions: New pantoprazole [Protonix] 40 mg tablet,delayed release (DR/EC) 40 mg PO BID Qty: 60 RF: 2 ferrous sulfate [iron] 325 mg (65 mg iron) tablet 325 mg PO BID Qty: 60 RF: 0 Continued alprazolam 0.5 mg tablet 0.5 mg PO TID PRN (Reason: Anxiety) RF: 0 lisinopril 10 mg tablet 10 mg PO DAILY RF: 0 Discontinued omeprazole 20 mg capsule,delayed release(DR/EC) 20 mg PO DAILY RF: 0 ondansetron 4 mg tablet,disintegrating 4 mg Translingual TID PRN (Reason: Nausea) RF: 0 naproxen 1 - 2 tab PO 1-2XD PRN (Reason: pain) RF: 0 Provider Discharge Instructions Diet: Diet as Tolerated Visit Report/Discharge Packet Instructions: DI for Peptic Ulcer Visit Report Forms: Stroke Signs & Symptoms Discharge Data Attending Provider: Natalie Lopez Admit Date/Time: 02/11/19 13:15 Discharges patient from system. Discharge Date/Time: 02/13/19 10:54 Quality VTE Deep Vein Thrombosis/Pulmonary Embolism Present on Admission: No
--- NOTE | 2019-02-13 10:52 | PC.NURSE ---
discharged home with significant other after reviewing post- hospitalization plans- answered all questions to their satisfaction- pt ambulated with hospital escort
--- NOTE | 2019-02-13 12:35 | CM.DANOTE ---
Discharge Planning/Care Management DCP; assessment: case received and discussed this morning in Team Rounds with Dr. Lopez. Pt is a 38 year old male who admitted afternoon of 02/11 to care of the hospitalist team. Payer: [facility] Admission status: INPT: confirmed by UR HUNTER Johnson. Dr. Lopez noted she was sending pt home today, he was doing well and he had no d/c needs. Went to room now to check in with pt. Room empty; pt has already left for his home in [place]. CM Discharge Assessment Start: 02/13/19 12:34 Freq: Status: Discharge Protocol: Document 02/13/19 12:34 ITV (Rec: 02/13/19 12:35 ITV [id number]) Discharge Planning Assessment Advance Directives? No History Provided By Patient Medical Record Household Members spouse Review Status In Process Next Review Type Continued Stay Review
== END 2019-02-13 10:54 | disposition home or self-care (01) | DRG 378 ==
LOC: ED 10:43 → AC 13:17
PROVIDERS: Surgery; Admitting Provider Internal Medicine; Emergency Provider Emergency Medicine; Visit Provider Internal Medicine
PROC: 0DJ08ZZ Inspection of Upper Intestinal Tract, Via Natural or Artificial Opening Endoscopic (ICD-10-PCS; CPT 43235; principal; 2019-02-12 14:00)
DX: K26.4 Chronic or unspecified duodenal ulcer with hemorrhage (principal); D62 Acute posthemorrhagic anemia; R51 Headache; I10 Essential (primary) hypertension; Z72.89 Other problems related to lifestyle; Z87.891 Personal history of nicotine dependence; T39.395A Adverse effect of other nonsteroidal anti-inflammatory drugs [NSAID], initial encounter; K29.71 Gastritis, unspecified, with bleeding; R00.0 Tachycardia, unspecified
CPT/HCPCS: 36415; 36430; 36591; 43239; 80048; 80053; 83690; 85025; 85610; 85730; 86850; 86900; 86901; 93005; 93010; 96365; 96366; 96375; 99232; 99283; 99284; P9016; C9113; J2250; J2270; J3010

== ENCOUNTER 2022-07-16 14:10 | Emergency (ER) | payer BC, SELFPAY ==
[2019-02-11 13:58] VITALS: BMI 29.0
[2022-07-16 14:55] VITALS: BP 182/125; PULSE 88; RESP 18; TEMP 36.4; O2SAT 99; BMI 27.7
[2022-07-16 15:29] LABS: Appearance Urine UA CLEAR; Bilirubin Urine UA NEGATIVE (NEGATIVE); Color Urine UA YELLOW; Glucose Urine UA NEGATIVE (Negative); Ketones Urine UA NEGATIVE (NEGATIVE); Leukocyte Esterase Urine UA NEGATIVE (NEGATIVE); Nitrite Urine UA NEGATIVE (Negative); Occult Blood Urine UA 2+ (Negative); Protein Urine UA NEGATIVE (Negative); Specific Gravity Urine UA 1.015 (1.000-1.035); Urobilinogen Urine UA 0.2 E.U./dL (0.2)
[2022-07-16 15:43] LABS: Add Manual Diff / Slide Review NO; Basophils Absolute Auto 0 /uL (0-100); Basophils Percent Auto 0.9 % (0-2); Eosinophils Absolute Auto 300 /uL (0-450); Hematocrit 47.2 % (41-53); Hemoglobin 16.6 g/dL (13.5-17.5); Lymphocytes Absolute Auto 1200 /uL (1100-4500); Lymphocytes Percent Auto 24.6 % (25-40); Mean Corpuscular HGB Conc 35.2 % (30-36); Mean Corpuscular Hemoglobin 30.3 PG (26-34); Mean Corpuscular Volume 86.1 fL (80-100); Monocytes Absolute Auto 400 /uL (0-900); Monocytes Percent Auto 8.1 % (3-14); Neutrophils Absolute Auto 3100 /uL (1500-7000); Neutrophils Percent Auto 60.4 % (50-75); Platelet Count 306 X10^3/uL (150-400); Red Blood Cell Count 5.48 X10^6/uL (4.5-5.9); Red Cell Distribution Width 12.6 % (11.6-14.8); White Blood Cell Count 5.1 X10^3/uL (4.5-11.0)
[2022-07-16 15:51] LABS: Alanine Aminotransferase 28 IU/L (<50); Albumin 5.3 g/dL (3.5-5.0); Albumin Globulin Ratio 1.3 (1.0-2.8); Alkaline Phosphatase 62 U/L (38-126); Aspartate Aminotransferase 24 IU/L (17-59); BUN Creatinine Ratio 15.6 (6-22); Blood Urea Nitrogen 14 mg/dL (9-20); Calcium 9.8 mg/dL (8.4-10.2); Carbon Dioxide 26 mmol/L (22-32); Chloride 101 mmol/L (98-107); Estimated Glomerular Filt Rate > 60 mL/min (>60); Globulin 4.2 g/dL (1.7-4.1); Glucose 94 mg/dL (70-100); HEMOLYSIS < 15 (0-50); Lipase 199 U/L (23-300); Potassium 3.6 mmol/L (3.4-5.1); Sodium 142 mmol/L (137-145); Total Protein 9.5 g/dL (6.3-8.2)
[2022-07-16 16:26] LABS: Bacteria Urine None Seen; Culture Indicated Urine Cult Not Indicated; Hyaline Casts Urine 1-5/LPF; RBC Urine 5-10/HPF (0-5/HPF); WBC Urine 0-1/HPF (0-5/HPF)
[2022-07-16 20:14] VITALS: PULSE 78; O2SAT 99
--- NOTE | 2022-07-16 20:22 | ED_ITS ---
HPI - General Adult General Chief complaint: Abdominal Pain Stated complaint: Blood in stool, stomach pain Time Seen by Provider: 07/16/22 20:07 Source: patient Mode of arrival: Family Vehicle History of Present Illness HPI narrative: 41-year-old male is here for evaluation of stomach cramping and also blood in his stool. Patient states he has had a stomach ulcer in the past. He states that this was attributed to ibuprofen that he was taking for ?pain? he is since stopped taking ibuprofen. He started noticing blood in his stool over the past 24-48 hours. Not vomiting any blood. States that the pain is actually cramping. No blood in his urine. No vomiting any blood. Does not take blood thinners. Does occasionally drink alcohol. Went to a walk-in clinic. He stated that they did a rectal exam. Told him that he had blood in his stool and was sent to the emergency department for further evaluation. Related Data Home Medications Medication Instructions Recorded Confirmed alprazolam 0.5 mg tablet 0.5 mg PO TID PRN Anxiety 02/11/19 02/11/19 lisinopril 10 mg tablet 10 mg PO DAILY 02/11/19 02/11/19 Previous Rx's Medication Instructions Recorded ferrous sulfate 325 mg (65 mg 325 mg PO BID #60 tabs 02/13/19 iron) tablet (iron) pantoprazole 40 mg tablet,delayed 40 mg PO BID #60 tabs 02/13/19 release (Protonix) alprazolam 0.5 mg tablet 0.5 mg PO DAILY PRN anxiety #5 tabs 07/16/22 lisinopril 10 mg tablet 10 mg PO DAILY #30 tabs 07/16/22 Allergies Allergy/AdvReac Type Severity Reaction Status Date / Time No Known Drug Allergies Allergy Verified 02/11/19 10:03 Review of Systems Constitutional Constitutional: Reports system reviewed and no additional complaints, except as documented Cardiovascular Cardiovascular: Reports system reviewed and no additional complaints, except as documented Respiratory Respiratory: Reports system reviewed and no additional complaints, except as documented Gastrointestinal Gastrointestinal: Reports system reviewed and no additional complaints, except as documented Genitourinary Genitourinary: Reports system reviewed and no additional complaints, except as documented Musculoskeletal Musculoskeletal: Reports system reviewed and no additional complaints, except as documented Integumentary/Breasts Skin/Breast: Reports system reviewed and no additional complaints, except as documented Hematologic/Lymphatic On Anticoagulants: No Patient History Medical History Back pain Chronic daily headache Healthy adult Hypertension Lower extremity pain Migraine headache Surgical History (Updated 02/11/19 @ 15:42 by Natalie Lopez MD) [place] teeth extracted Family History (Updated 02/11/19 @ 15:44 by Natalie Lopez MD) Father Myocardial infarction Mother Obesity Obstructive sleep apnea Social History household members: spouse Smoking Status: Former smoker Smoking Status: Former smoker tobacco type: cigarettes alcohol intake frequency: 3 or more drinks per day Substance Use Type: does not use Exam Initial Vital Signs Initial Vital Signs: Vital Signs Temperature 97.5 F L 07/16/22 14:55 Pulse Rate 88 07/16/22 14:55 Respiratory Rate 18 07/16/22 14:55 Blood Pressure 182/125 H 07/16/22 14:55 Pulse Oximetry 99 07/16/22 14:55 Oxygen Delivery Method 07/16/22 14:55 Const General: cooperative and comfortable HENMT Head: normal to inspection and normocephalic Resp Effort & Inspection: normal respiratory effort Cardio Rate: regular rate GI Inspection: normal to inspection Skin General: no rashes or lesions noted Extrem General: normal to inspection and capillary refill normal Course Orders Ordered: ED Orders 07/16/22 15:20 Complete Blood Count AUTO DIFF Stat Comprehensive Metabolic Panel Stat Lipase Stat Urinalysis and Microscopic Stat Vital Signs Vital signs: Vital Signs - 8 hr 07/16/22 20:14 07/16/22 20:30 07/16/22 20:31 Pulse Rate 78 79 78 Respiratory Rate 16 Blood Pressure Pulse Oximetry 99 97 97 Oxygen Delivery Method Room Air 07/16/22 20:31 Pulse Rate Respiratory Rate Blood Pressure 183/121 H Pulse Oximetry Oxygen Delivery Method Medical Decision Making Lab Data Lab results reviewed: Yes I reviewed the patient's lab results. Result diagrams: 07/16/22 15:20 07/16/22 15:20 Labs: Lab Results 07/16/22 07/16/22 07/16/22 Range/Units 15:20 15:20 15:20 WBC 5.1 (4.5-11.0) X10^3/uL RBC 5.48 (4.5-5.9) X10^6/uL Hgb 16.6 (13.5-17.5) g/dL Hct 47.2 (41-53) % MCV 86.1 (80-100) fL MCH 30.3 (26-34) PG MCHC 35.2 (30-36) % RDW 12.6 (11.6-14.8) % Plt Count 306 (150-400) X10^3/uL Neut % (Auto) 60.4 (50-75) % Lymph % (Auto) 24.6 L (25-40) % Robeson % (Auto) 8.1 (3-14) % Eos % (Auto) 6.0 H (2-4) % Baso % (Auto) 0.9 (0-2) % Neut # (Auto) 3100 (6197-9164) /uL Lymph # (Auto) 1200 (9444-2538) /uL Robeson # (Auto) 400 (0-900) /uL Eos # (Auto) 300 (0-450) /uL Baso # (Auto) 0 (0-100) /uL Sodium 142 (137-145) mmol/L Potassium 3.6 (3.4-5.1) mmol/L Chloride 101 (98-107) mmol/L Carbon Dioxide 26 (22-32) mmol/L BUN 14 (9-20) mg/dL Creatinine 0.90 (0.66-1.25) mg/dL Estimated GFR > 60 (>60) mL/min BUN/Creatinine Ratio 15.6 (6-22) Glucose 94 (70-100) mg/dL Calcium 9.8 (8.4-10.2) mg/dL Total Bilirubin 1.0 (0.2-1.3) mg/dL AST 24 (17-59) IU/L ALT 28 (<50) IU/L Alkaline Phosphatase 62 (38-126) U/L Total Protein 9.5 H (6.3-8.2) g/dL Albumin 5.3 H (3.5-5.0) g/dL Globulin 4.2 H (1.7-4.1) g/dL Albumin/Globulin Ratio 1.3 (1.0-2.8) Lipase 199 (23-300) U/L Urine Color Yellow Urine Appearance Clear Urine pH 5.0 (4.5-8.0) Ur Specific Alliance 1.015 (1.000-1.035) Urine Protein Negative (Negative) Urine Glucose (UA) Negative (Negative) g/dL Urine Ketones Negative (NEGATIVE) Urine Occult Blood 2+ H (Negative) Urine Nitrate Negative (Negative) Urine Bilirubin Negative (NEGATIVE) Urine Urobilinogen 0.2 (0.2) E.U./dL Ur Leukocyte Esterase Negative (NEGATIVE) Urine RBC 5-10/hpf H (0-5/HPF) Urine WBC 0-1/hpf (0-5/HPF) Urine Bacteria None seen (None) Hyaline Casts 1-5/lpf (None) Ur Culture Indicated? Cult not indicated MDM Narrative Medical decision making narrative: Will hold on rectal exam because the patient states he just had a rectal exam and they told him that he had blood in his stool. Patient is not anemic. Not tachycardic. Is hypertensive but has a known history of hypertension and is not currently taking any of his blood pressure medications. Has benign abdominal exam. Will start the patient on lisinopril. Will also have the patient start on a proton pump inhibitor. He was given follow-up instructions to contact General surgery to discuss having an outpatient colonoscopy and upper endoscopy. No indication for admission to the hospital for that currently based on his clinical presentation and his exam and his labs and his vital signs. He was given return precautions. He expressed understanding and agreement. Discharge Plan Departure Patient Disposition: Home Clinical Impression: Hypertension, GI bleed, Anxiety Instructions: Gastrointestinal Bleeding Activity Restrictions/Additional Instructions: I do recommend that you contact the general surgery department at the number provided below for follow-up to discuss the indications for a upper endoscopy and also a colonoscopy. I recommend that you start a medication called a proton pump inhibitor. Examples of these include Nexium and Prilosec. Can purchase these [id number]. The generic versions of these medications are appropriate. Contact your primary doctor's office for follow-up. Return to the emergency department for any new or worsening symptoms. Prescriptions: New lisinopril 10 mg tablet 10 mg PO DAILY Qty: 30 0RF alprazolam 0.5 mg tablet 0.5 mg PO DAILY PRN (Reason: anxiety) Qty: 5 0RF No Action alprazolam 0.5 mg tablet 0.5 mg PO TID PRN (Reason: Anxiety) Label Comments: take 1 tablet by mouth three times a day if needed for anxiety lisinopril 10 mg tablet 10 mg PO DAILY Label Comments: PATIENT STATES HAS RX. TOOK ONE TABLET AND THEN WAS WORRIED IT CAUSED BLEED SO TOLD TO STOP. Has not taken consistently. 02/11/19 pantoprazole [Protonix] 40 mg tablet,delayed release (DR/EC) 40 mg PO BID Qty: 60 2RF ferrous sulfate [iron] 325 mg (65 mg iron) tablet 325 mg PO BID Qty: 60 0RF Visit Report Forms: Patient Portal/API
[2022-07-16 20:30] VITALS: PULSE 79; O2SAT 97
[2022-07-16 20:31] VITALS: BP 183/121; PULSE 78; RESP 16; O2SAT 97
== END 2022-07-16 20:49 | disposition home or self-care (01) ==
PROVIDERS: Emergency Medicine; Emergency Provider Emergency Medicine
DX: I10 Essential (primary) hypertension (principal); K92.2 Gastrointestinal hemorrhage, unspecified; F41.9 Anxiety disorder, unspecified
CPT/HCPCS: 36415; 80053; 81001; 83690; 85025; 99283